=== PATIENT | female | born 1950 | race Caucasian/White ===

== ENCOUNTER → 2016-12-17 | Outpatient (CLI) | payer BC ==
[~2016-12-17] MED LIST: ACET-1311 PO; ATOR-22 PO; CETI5TAB5 PO; GLC/500 PO; IBUP-1050 PO; ZNTT/150 PO
== END | disposition home or self-care (01) ==
LOC: C.PAPS 09:21
PROVIDERS: ATTEND Obstetrics & Gynecology
DX: Z01.419 Encounter for gynecological examination (general) (routine) without abnormal findings (principal)